=== PATIENT | female | born 1985 | race Caucasian/White ===

== ENCOUNTER 2019-01-10 19:02 | Inpatient (IN) ==
[2019-01-10] MEDS ORDERED: Acetaminophen 325 MG TABLET PO PRN (19:41)
--- NOTE | 2019-01-10 20:11 | OB/GYN History & Physical ---
Date of Encounter: 01/10/19 Time of Encounter: 20:07 Assessment and Plan (1) Postoperative fever Current visit: Yes Status: Acute History of Present Illness Chief complaint: Postop fever HPI: Ms. Diego is a 33 year old female para 2 status post laparoscopic-assisted vaginal hysterectomy for bleeding and pelvic pain. Patient underwent her surgery on Sunday and went home on Sunday with uncomplicated hysterectomy. Last night she began a fever. Today she presented to the emergency room with elevated temperature of 102.3. Patient's labs all normal on review. CT was ordered by emergency room which was basically benign. Small amount of blood in the pelvis. Patient's hemoglobin went from 8-9. . Patient's white count is 6. We had a discussion today about her fever. She is currently at 104 degrees. We discussed the possibility of septic pelvic thrombophlebitis. Although this is a diagnosis of exclusion at this point we do feel it is a possibility. We feel that starting her on IV antibiotics with the first step. If there is no change in her fever then we will proceed with blood thinners. I discussed this with the patient and her today. They do understand this. She this patient has allergies to Levaquin and tramadol. Current medications acute include Humira, hydrocortisone, lisinopril, spironolactone and doxycycline. Chronic medical conditions including adrenal insufficiency, Crohn's disease, thin basement membrane kidney disease, hypertension, orbital tumor behind left eye. Surgical history includes laparoscopic-assisted vaginal hysterectomy, left breast biopsy, left kidney biopsy, left eye biopsy, endometrial ablation and tubal ligation. Socially this patient denies tobacco, alcohol, illicit drug use. Family history significant for esophageal cancer, hypertension and stroke. Obstetric history significant for 2 term vaginal deliveries Past Med Surg Social [facility] HX - Past Medical History Medical history: GERD, hypertension Additional medical history: Adrenal Insuffiency. Thin Basement Membrane Disease. Proteinuria. Orbital Edema. Tumor Behind Left Eye. Depression. Pre-eclampsia. Crohn's Psychiatric history: no psych history - Past Surgical History Surgical History: non-contributory, breast surgery, other Additional surgical history: Lumpectomy Left Breast. Biopsy Left Eye. Kidney Biopsy. Operative Laparoscopy, Bilateral Tubal Ligation with Falope Rings. Colon/EGD. [place] Teeth Extraction. Diagnostic Hysteroscopy. D&C. Endometrial Ablation with Telma - Social History Smoking Status: Never smoker Smokeless Tobacco Status: No Alcohol use: none Drug use: none - Family History Mother Living Status: Still Living Hx Family Cardiac Disorders: No Hx Family Respiratory Disorders: No Hx Family Cancer: No Hx Family GI Disorders: No Hx Family Endocrine Disorder: No Hx Family Neuromuscular Disorders: No Hx Family Neurologic Disorders: No Hx Family HEENT Disorders: No Hx Family Autoimmune Disorders: No Obstetrical History - Pregnancies : 2 Para: 2 Livin Medications and Allergies Spironolactone [Aldactone] 25 mg PO DAILY 05/03/16 [History] amLODIPine [Norvasc] 5 mg PO PRN PRN 05/03/16 [History] Adalimumab [Humira] 40 mg SQ Q2W 06/27/18 [History] Hydrocortisone [Cortef] 5 mg PO BID 09/03/18 [History] Dicyclomine [Bentyl] 10 mg PO PRN PRN 01/06/19 [History] Doxycycline Hyclate 100 mg PO DAILY 01/06/19 [History] Lisinopril [Zestril] 10 mg PO DAILY 01/06/19 [History] Multivitamin [Daily Multiple Vitamin] 1 tab PO DAILY 01/06/19 [History] Potassium Chloride [Klor-Con 10] 10 meq PO DAILY 01/06/19 [History] Acetaminophen [Tylenol] 1,000 mg PO Q6HR tablet 01/07/19 [Rx] Docusate [Colace] 100 mg PO BID capsule 01/07/19 [Rx] Ondansetron [Zofran ODT] 8 mg SL Q8H PRN 7 Days #20 tab 01/07/19 [Rx] OxyCODONE Immed Rel [Roxicodone 5 MG] 2.5 mg PO Q4HR PRN 7 Days #40 tablet 01/07/19 [Rx] Metoclopramide [Reglan] 10 mg PO Q6HR PRN #7 mls 01/10/19 [Rx] Allergy/AdvReac Type Severity Reaction Status Date / Time levofloxacin [From Levaquin] Allergy Hives Verified 01/10/19 08:37 acetaminophen [From [place]] AdvReac Nausea Verified 01/10/19 08:37 hydrocodone [From [place]] AdvReac Nausea Verified 01/10/19 08:37 tramadol AdvReac Nausea Verified 01/10/19 08:37 Review of System OB All systems PM: reviewed and no additional remarkable complaints except as stated Exam - Constitutional Constitutional: well developed, well nourished, no acute distress, average body habitus - HEENT HEENT: EOMI, PERRL - Neck Neck exam: full ROM - Lungs Respiratory exam: CTAB - Cardiovascular Cardiovascular exam: RRR - Abdomen Abdomen: Present: bowel sounds normal, non tender - Extremities Extremities exam: full ROM Results All other labs normal. - VTE Reasons for not Prescribing Prophylaxis: Treatment not Indicated - Low risk for VTE
[2019-01-10 20:32] LABS: BUN/Creatinine Ratio 9 (6-26); Blood Urea Nitrogen 6 mg/dL (6-20); eGFR For African Americans > 60 (> 60); eGFR For Non-African Americans > 60 (> 60)
[2019-01-10] MEDS: Piperacillin/Tazobactam 3.375 GM in 0.9 % Sodium Chloride Mini Bag 100 ML IVPB SCH (20:38)
[2019-01-10] MEDS: Ibuprofen 600 MG TABLET PO PRN (21:41)
[2019-01-11] MEDS: Ringers Solution, Lactated 1,000 ML IVC SCH ×2 (00:40→16:39)
[2019-01-11] MEDS: Piperacillin/Tazobactam 3.375 GM in 0.9 % Sodium Chloride Mini Bag 100 ML IVPB SCH ×3 (03:51→21:56)
[2019-01-11 04:25] LABS: Basophils % 0.2 %; Eosinophils # 0.1 K/mcL (0.0-0.6); Eosinophils % 1.2 %; Hematocrit 23.1 % (35.3-44.9); Immature Granulocytes % 0.8 % (0-4); Lymphocytes # 0.8 K/mcL (0.6-4.6); Lymphocytes % 16.5 %; Mean Corpuscular HGB Conc 32.9 g/dL (31.6-35.5); Mean Corpuscular Hemoglobin 30.2 pg (28.0-33.3); Mean Corpuscular Volume 91.7 fL (83.0-100.0); Mean Platelet Volume 10.2 fL (9.4-12.4); Monocytes # 0.4 K/mcL (0.0-1.3); Monocytes % 6.9 %; Neutrophils # 3.8 K/mcL (1.6-8.9); Platelet Count 344 K/mcL (140-400); Red Blood Count 2.52 M/mcL (3.82-4.97); Segmented Neutrophils % 74.4 %; White Blood Count 5.1 K/mcL (4.3-11.1)
[2019-01-11 04:28] LABS: Hemoglobin 7.6 g/dL (11.5-15.4)
--- NOTE | 2019-01-11 09:05 | OB/GYN Progress Note ---
Date of Encounter: 01/11/19 Time of Encounter: 09:05 - Assessment and Plan (1) Postoperative fever Current Visit: Yes Status: Acute Continue current IV antibiotics for 24 hours Routine vital signs Regular diet anticipate discharge home tomorrow Subjective - Subjective Principal diagnosis: Postop Fever Interval history: Ms. Diego is a 33 year old female para 2 status post laparoscopic-assisted vaginal hysterectomy for bleeding and pelvic pain. Patient underwent her surgery on Sunday and went home on Sunday with uncomplicated hysterectomy. Developed a fever on 01/09/19. Yesterday she presented to the emergency room with elevated temperature of 102.3. Patient's labs all normal on review. CT was ordered by emergency room which was basically benign. Small amount of blood in the pelvis. Patient's hemoglobin went from 8-9. . Patient's white count is 6. We had a discussion today about her fever. She is currently at 104 degrees. We discussed the possibility of septic pelvic thrombophlebitis. Although this is a diagnosis of exclusion at this point we do feel it is a possibility. We feel that starting her on IV antibiotics with the first step. If there is no change in her fever then we will proceed with blood thinners. Patient has been afebrile at least for the past [address] Lieberman's POC is to continue IV antibiotics for 24 hours total, repeat cbc in AM. If patient remains afebrile will anticipate discharge home tomorrow and follow up with Dr. Felix. Patient reports: appetite normal, voiding normally, pain well controlled, ambulating normally Objective - Vital Signs Latest vital signs: Vital Signs Temp Pulse Resp BP Pulse Ox 01/11/19 03:50 97.7 F 74 14 118/76 100 01/11/19 00:27 97.9 F 75 15 127/75 100 01/10/19 20:40 98.6 F 74 14 134/78 99 Intake and Output 01/10/19 01/11/19 01/11/19 23:59 07:59 15:59 Intake Total 100 / 100 Output Total 100 / 100 500 / 500 Balance -100 / -100 -400 / -400 Intake: IV Fluids 100 / 100 Zosyn 3.375 GM In 0.9 % Sodium 100 / 100 Chloride (Mini-Bag +) 100 ML @ 25 mls/hr IVPB Q8H [facility] Rx#: [id number] Output: Urine 100 / 100 500 / 500 Other: Weight 54.1 kg - I&O's I&O's: Intake & Output 01/08/19 01/09/19 01/10/19 01/11/19 23:59 23:59 23:59 23:59 Intake Total 100 / 100 Output Total 100 / 100 500 / 500 Balance -100 / -100 -400 / -400 Weight 54.1 kg - Exam Lungs: bilateral: normal Extremities: Present: normal Abdomen: Present: normal appearance, soft Incision OB: Present: normal, dressed (steri-stips and band aids) - Labs Labs: Abnormal lab results RBC 2.52 M/mcL (3.82-4.97) L 01/11/19 03:11 Hgb 7.6 g/dL (11.5-15.4) L D 01/11/19 03:11 Hct 23.1 % (35.3-44.9) L 01/11/19 03:11 Consult Discharge Plan - Plan Referrals: Murray Chen DO [Primary Care Provider] -
[2019-01-11] MEDS: Ibuprofen 600 MG TABLET PO PRN ×3 (09:18→21:54)
[2019-01-12] MEDS: Ibuprofen 600 MG TABLET PO PRN (07:15)
[2019-01-12 08:16] VITALS: BP 135/84
[2019-01-12 09:11] LABS: Basophils % 0.4 %; Eosinophils # 0.1 K/mcL (0.0-0.6); Eosinophils % 1.9 %; Hematocrit 24.9 % (35.3-44.9); Hemoglobin 8.3 g/dL (11.5-15.4); Immature Granulocytes % 0.8 % (0-4); Lymphocytes # 1.1 K/mcL (0.6-4.6); Lymphocytes % 22.1 %; Mean Corpuscular HGB Conc 33.3 g/dL (31.6-35.5); Mean Corpuscular Hemoglobin 30.4 pg (28.0-33.3); Mean Corpuscular Volume 91.2 fL (83.0-100.0); Mean Platelet Volume 9.4 fL (9.4-12.4); Monocytes # 0.4 K/mcL (0.0-1.3); Monocytes % 8.5 %; Neutrophils # 3.4 K/mcL (1.6-8.9); Platelet Count 390 K/mcL (140-400); Red Blood Count 2.73 M/mcL (3.82-4.97); Red Cell Distribution Width 12.1 % (11.5-14.5); Segmented Neutrophils % 66.3 %; White Blood Count 5.2 K/mcL (4.3-11.1)
--- NOTE | 2019-01-12 10:23 | OB/GYN Progress Note ---
Date of Encounter: 01/12/19 Time of Encounter: 10:23 - Assessment and Plan (1) Postoperative fever Current Visit: Yes Status: Acute Continue antibiotics PO Follow up with Dr. Felix as scheduled Return precautions discussed Discharge home Subjective - Subjective Principal diagnosis: Postoperative fever Interval history: Ms. Diego is a 33 year old female para 2 status post laparoscopic-assisted vaginal hysterectomy for bleeding and pelvic pain. Patient underwent her surgery on Sunday and went home on Sunday with uncomplicated hysterectomy. Developed a fever on 01/09/19. Sunday she presented to the emergency room with elevated temperature of 102.3. Patient's labs all normal on review. CT was ordered by emergency room which was basically benign. Small amount of blood in the pelvis. Patient has been afebrile at least for the past [address] Bingham's POC is to discharge home on PO antibiotics. Patient will follow up with Dr. Felix. Patient reports: appetite normal, voiding normally, pain well controlled, ambulating normally Patient reports: appetite normal, voiding normally, pain well controlled, ambulating normally Objective - Vital Signs Latest vital signs: Vital Signs Temp Pulse Resp BP Pulse Ox 01/12/19 08:15 98.4 F 79 16 135/84 01/12/19 02:35 99.2 F 97 14 140/73 99 01/11/19 21:30 98.9 F 79 14 151/96 100 01/11/19 15:33 98.7 F 82 16 131/83 01/11/19 11:15 98.7 F 77 16 127/73 98 Intake and Output 01/11/19 01/12/19 01/12/19 23:59 07:59 15:59 Intake Total 200 / 1980 100 / 340 240 / 340 Output Total 150 / 1200 400 / 400 Balance 50 / 780 -300 / -60 240 / -60 Intake: IV Fluids 100 / 100 Zosyn 3.375 GM In 0.9 % Sodium 100 / 100 Chloride (Mini-Bag +) 100 ML @ 25 mls/hr IVPB Q8H [facility] Rx#: [id number] Oral 200 / 680 240 / 240 Output: Urine 150 / 1200 400 / 400 Other: Meal Dinner Breakfast Percent of Meal Consumed 50% 10% Stool Consistency loose # Voids 3 # Bowel Movements 2 - I&O's I&O's: Intake & Output 01/09/19 01/10/19 01/11/19 01/12/19 23:59 23:59 23:59 23:59 Intake Total 1979 / 1979 340 / 340 Output Total 100 / 100 1200 / 1200 400 / 400 Balance -100 / -100 780 / 780 -60 / -60 Weight 54.1 kg - Exam Lungs: bilateral: normal Chest: Normal S1, Normal S2 Extremities: Present: normal Abdomen: Present: normal appearance, soft Incision OB: Present: normal, dry, intact - Labs Labs: Abnormal lab results RBC 2.73 M/mcL (3.82-4.97) L 01/12/19 08:55 Hgb 8.3 g/dL (11.5-15.4) L 01/12/19 08:55 Hct 24.9 % (35.3-44.9) L 01/12/19 08:55 Consult Discharge Plan - Plan Referrals: Murray Chen DO [Primary Care Provider] - Prescriptions: Sulfamethoxazole/Trimeth DS [Bactrim DS] 1 each PO BID #20 tablet
== END 2019-01-12 12:25 | disposition home or self-care (01) | DRG 864 ==
LOC: 1NENUOBS
PROVIDERS: ADMIT Obstetrics & Gynecology; ATTEND Obstetrics & Gynecology